=== PATIENT | female | born 1945 ===

== ENCOUNTER 2024-09-16 06:15 | Day surgery (SDC) | payer OTHER ==
[2024-09-12 08:32] LABS: HEMATOCRIT 28.8 % (36.0-45.00); HEMOGLOBIN 9.4 g/dL (12.0-15.00); MEAN CELL VOLUME 77.4 fL (80.00-100.00); MEAN CORPUSCULAR HEMOGLOBIN 25.3 pg (27.00-32.0); MEAN CORPUSCULAR HGB CONC 32.8 g/dl (32.0-36.0); PLATELET COUNT 219 K/uL (150-450); RED BLOOD COUNT 3.72 M/uL (4.00-6.00); RED CELL DISTRIBUTION WIDTH 15.4 % (11.5-14.5)
[2024-09-12 08:40] LABS: URINE APPEARANCE Cloudy; URINE BILIRRUBIN Negative (NEGATIVE); URINE BLOOD Negative; URINE COLOR Yellow; URINE GLUCOSE Negative (NEGATIVE); URINE KETONE Negative (NEGATIVE); URINE LEUKOCYTE Trace; URINE NITRATE Negative; URINE PROTEIN 30 (NEGATIVE); URINE UROBILINOGEN 0.2 E.U./dl
[2024-09-12 08:41] LABS: URINE BACTERIA 570.3 uL (0.0-1933); URINE EPITHELIAL CELLS 19.3 uL (0.0-38.8); URINE RBC 78.3 uL (0.0-20.8); URINE WBC 9.4 uL (0.0-23.2)
[2024-09-12 08:47] VITALS: BP 140/60
[2024-09-12 08:55] LABS: URINE CAST 0.29 uL (0.0-1.40)
[2024-09-12 09:14] LABS: ALBUMIN 4.2 gm/dL (3.4-5.0); BILIRUBIN TOTAL 0.6 mg/dL (0.3-1.2); CALCIUM 9.9 mg/dL (8.5-10.1); CREATININE SERUM 1.18 mg/dL (0.55-1.02); GFR 44.3; GLOBULINA 3.1 G/DL (2.4-3.5); POTASSIUM 5.14 mEq/L (3.5-5.1); TOTAL PROTEIN 7.3 gm/dL (6.4-8.2)
[2024-09-12 09:15] LABS: PARTIAL THROMBOPLASTIN TIME 28.3 SECONDS (22.0-34.0); PROTHROMBIN TIME 10.9 SECONDS (9.0-11.5)
[~2024-09-16] VITALS: Ht 160 cm; Wt 98.4 kg
[~2024-09-16 06:15] MED LIST: GLIMEPIRIDE1 MG; IRBESARTAN-HCT1 EACH PO; NAPR500T14 PO; PRILOSEC OTC20 MG PO; SYNTHROID88 MCG PO; ZOCOR40 MG PO
[2024-09-16] MEDS ORDERED: CEFAZOLIN SODIUM 1,000 MG VIAL ONE (07:23)
[2024-09-16] MEDS ORDERED: BUPIVACAINE HCL/MPF 0.5% 30ML VIAL ONE (07:23)
[2024-09-16] MEDS ORDERED: ENALAPRILAT DIHYDRATE 1.25 MG/ML VIAL IV ONE ×2 (08:36→08:41)
[2024-09-16] MEDS ORDERED: hydrALAZINE HCL 20 MG VIAL ONE (09:08)
[2024-09-16] MEDS ORDERED: MORPHINE SULFATE 4 MG/ML VIAL IV ONE ×2 (13:40→15:25)
[2024-09-16] MEDS ORDERED: cloNIDine HCL 0.2 MG TABLET PO ONE (15:20)
== END 2024-09-16 18:25 | disposition home or self-care (01) ==
LOC: CIR.AMB 06:15
PROVIDERS: ATTEND Orthopaedic Surgery Hand Surgery
DX: S52.531A Colles' fracture of right radius, initial encounter for closed fracture (principal); M24.531 Contracture, right wrist
CPT/HCPCS: 25609; 25118; 25280; L8699